=== PATIENT | female | born 1995 | race Caucasian/White ===

== ENCOUNTER 2021-02-02 18:31 | Emergency (ER) | payer BC ==
[~2021-02-02] VITALS: Ht 175.3 cm; Wt 62.6 kg
== END 2021-02-02 21:42 | disposition home or self-care (01) ==
LOC: ER 18:31
DX: M94.0 Chondrocostal junction syndrome [Tietze] (principal); R07.89 Other chest pain; F41.8 Other specified anxiety disorders